=== PATIENT | male | born 1980 | race Caucasian/White ===

== ENCOUNTER → 2021-04-08 | Day surgery (SDC) | payer OTHER ==
[~2021-04-08] VITALS: Ht 172.7 cm; Wt 65.8 kg
[2021-04-08 08:14] LABS: MCH 30.3 pg (25.0-31.0); MCHC 34.7 g/dL (32.0-36.0); MCV 87.3 fL (78.0-100.0); MPV 9.3 fL (6.0-9.5); RBC 5.61 M/uL (4.70-6.00); RDW 12.5 % (11.5-14.0); WBC 7.4 K/uL (4.0-10.5)
[2021-04-08 08:35] LABS: ALBUMIN 4.5 g/dL (3.4-5.0); BILIRUBIN - TOTAL 0.7 mg/dL (0.2-1.0); CREATININE 0.86 mg/dL (0.67-1.17); GLOBULIN (CALCULATION) 3.1 g/dL; TOTAL PROTEIN 7.6 g/dL (6.4-8.2)
== END | disposition home or self-care (01) ==
LOC: FAS 07:38
PROVIDERS: Surgery
DX: Z12.11 Encounter for screening for malignant neoplasm of colon (principal); Z86.010 Personal history of colon polyps; Z83.71 Family history of colonic polyps; Z88.0 Allergy status to penicillin
CPT/HCPCS: 36415; 80053; J2250; J2704; J7120